=== PATIENT | female | born 1990 | race Two or more races ===

== ENCOUNTER 2021-10-28 14:43 | Inpatient (IN) ==
[2021-10-28] MEDS ORDERED: ONDANSETRON 4 MG/2 ML VIAL IV PRN (14:57)
[2021-10-28] MEDS ORDERED: LACTATED RINGERS 1,000 ML IV ONE (14:57)
[2021-10-28] MEDS ORDERED: OXYTOCIN/LR 20 UNIT/1,000 ML BAG IV SCH (15:00)
[2021-10-28 15:30] LABS: Basophils % 0.2 % (0.0-0.8); Eosinophils % 0.3 % (0.00-10.9); Hematocrit 37.1 VOL% (35.7-47.0); Hemoglobin 12.5 GM/DL (12.0-16.0); Immature Granulocytes % 0.5 %; Immature Granulocytes Absolute 0.06 #; Lymphocytes # 2.4 10*3/uL (1.4-4.0); Lymphocytes % 20.2 % (21.3-54.2); Mean Corpuscular HGB Conc 33.7 GM/DL (32-36); Mean Corpuscular Volume 97.4 FL (87-102); Mean Platelet Volume 10.6 FL (9.6-12.0); Monocytes % 6.9 % (1.7-12.7); Neutrophils % 71.9 % (38.7-73.9); Platelet Count 205 T/CUMM (130-400); Red Blood Count 3.81 MC/CUMM (3.8-5.5); Red Cell Distribution Width 13.5 % (9.3-17.3); White Blood Count 11.8 T/CUMM (4-12)
[2021-10-28 15:51] LABS: Alanine Aminotransferase 23 U/L (13-56); Albumin 2.3 G/DL (3.4-5.0); Alkaline Phosphatase 147 U/L (45-117); Aspartate Amino Transferase 25 U/L (0-37); Bilirubin,Total < 0.39 MG/DL (0.20-1.00); Blood Urea Nitrogen 12 MG/DL (7-18); Calcium 8.9 MG/DL (8.5-10.1); Carbon Dioxide 20 MMOL/L (21-32); Estimated Glom Filtration Rate 92 ML/MIN; Glucose 175 MG/DL (74-106); Osmolality,Calculated 276.8 MOS/KG (273-304); Potassium 3.8 MMOL/L (3.5-5.1); Sodium 137 MMOL/L (136-145); Total Protein 6.3 G/DL (6.4-8.2)
[2021-10-28] MEDS ORDERED: NALOXONE 0.4 MG/ML VIAL IV PRN (15:54)
[2021-10-28] MEDS ORDERED: ONDANSETRON 4 MG/2 ML VIAL IV ONE (15:54)
[2021-10-28] MEDS ORDERED: PROMETHAZINE 25 MG/1 ML VIAL IM ONE (15:54)
[2021-10-28] MEDS ORDERED: CITRIC ACID/SODIUM CITRATE 30 ML UDCUP PO ONE (15:54)
[2021-10-28] MEDS ORDERED: hydrOXYzine HCL 25 MG/1 ML VIAL IM PRN (15:54)
[2021-10-28] MEDS ORDERED: ePHEDrine 50 MG/ML VIAL IV PRN (15:54)
[2021-10-28] MEDS ORDERED: diphenhydrAMINE 50 MG/1 ML VIAL IV PRN ×2 (15:54)
[2021-10-28] MEDS ORDERED: FAMOTIDINE 20 MG/2 ML VIAL IV ONE (15:54)
[2021-10-28] MEDS: LACTATED RINGERS 1,000 ML IV SCH ×2 (16:29→23:48)
[2021-10-28] MEDS: fentaNYL 2 MCG/ROPIV 0.2% EPID 100 ML EPIDURAL SCH ×2 (17:15→23:47)
[2021-10-28 18:26] LABS: Bacteria,Urine Few /HPF (Few); Bilirubin,Urine Negative (Negative); Blood, Urine Negative (Negative); Glucose,Urine (UA) 50 mg/dL (Negative); Ketones,Urine 5 mg/dL (Negative); Mucus,Urine Occasional /LPF (Occasional); Nitrite,Urine Negative (Negative); Protein,Urine Negative; Squamous Epithelial Cell,Urine Occasional /HPF (0-10); Urine Appearance CLEAR (Clear); Urine Color Yellow (Yellow); Urine Specific Gravity 1.014 (1.001-1.035); Urine Urobilinogen < 2.0 EU/DL (<2.0)
[2021-10-28] MEDS ORDERED: OXYTOCIN/LR 30 UNIT/1,000 ML BAG IV ONE (19:35)
[2021-10-28] MEDS ORDERED: TRANEXAMIC ACID 1,000 MG/10 ML VIAL ONE (21:47)
[2021-10-28] MEDS ORDERED: METHYLERGONOVINE 0.2 MG/1 ML AMP ONE (21:47)
[2021-10-28] MEDS ORDERED: miSOPROStoL 200 MCG TABLET ONE (21:47)
[2021-10-29] MEDS ORDERED: LIDOCAINE 1% 50 ML VIAL ONE (02:29)
[2021-10-29 02:59] LABS: Cord Arterial Blood HCO3 18.2 MMOL/L
[2021-10-29 03:02] LABS: Cord Venous Blood PCO2 47.6 MMHG; Cord Venous Blood PO2 25.6
[2021-10-29] MEDS: IBUPROFEN 800 MG TABLET PO PRN ×2 (03:40→14:49)
[2021-10-29] MEDS ORDERED: BENZOCAINE 20%/MENTHOL 0.5% SPRAY 56 GM CAN TOP PRN (05:21)
[2021-10-29] MEDS: DOCUSATE SODIUM 100 MG/10 ML UDCUP PO SCH ×2 (08:53→21:30)
[2021-10-29] MEDS: MULTIVITAMIN (PRENATAL) TABLET PO SCH (08:53)
[2021-10-29 10:44] LABS: Basophils % 0.1 % (0.0-0.8); Eosinophils % 0.1 % (0.00-10.9); Hematocrit 29.2 VOL% (35.7-47.0); Immature Granulocytes % 0.6 %; Immature Granulocytes Absolute 0.11 #; Lymphocytes # 2.1 10*3/uL (1.4-4.0); Lymphocytes % 11.9 % (21.3-54.2); Mean Corpuscular HGB Conc 34.2 GM/DL (32-36); Mean Corpuscular Volume 95.7 FL (87-102); Mean Platelet Volume 10.4 FL (9.6-12.0); Monocytes % 6.5 % (1.7-12.7); Neutrophils % 80.8 % (38.7-73.9); Platelet Count 161 T/CUMM (130-400); Red Blood Count 3.05 MC/CUMM (3.8-5.5); Red Cell Distribution Width 13.5 % (9.3-17.3); White Blood Count 17.9 T/CUMM (4-12)
[2021-10-30] MEDS: IBUPROFEN 800 MG TABLET PO PRN (00:26)
[2021-10-30] MEDS: MULTIVITAMIN (PRENATAL) TABLET PO SCH (08:32)
[2021-10-30] MEDS: DOCUSATE SODIUM 100 MG/10 ML UDCUP PO SCH (08:32)
[2021-10-30 11:40] VITALS: BP 101/57
== END 2021-10-30 16:40 | disposition home or self-care (01) | DRG 807 ==
LOC: N.LDOUT 14:43 → N.LD 14:49 → N.OB 10-29 05:10
PROVIDERS: ADMIT Obstetrics & Gynecology; ATTEND Obstetrics & Gynecology